=== PATIENT | female | born 1950 | race Caucasian/White ===

== ENCOUNTER → 2020-05-13 17:56 | Outpatient (CLI) | payer MEDICARE, OTHER, SELFPAY ==
--- NOTE | ~2020-05-13 | MM_ITS ---
EXAMINATION: MM screening [facility] BI w colleen HISTORY: Screening TECHNIQUE: Craniocaudal and mediolateral oblique 3-D tomosynthesis images were obtained and synthetic 2-D images were generated. CAD analysis was submitted and interpreted. COMPARISON: Comparison to multiple prior studies sequentially, with oldest reviewed study dated 10/26. BREAST PARENCHYMAL COMPOSITION: There are scattered areas of fibroglandular density. FINDINGS: Breast asymmetries are stable. There is no evidence of suspicious mass, calcification, or a rchitectural distortion to suggest malignancy in either breast. There has been no suspicious interval change. IMPRESSION: 1. No mammographic evidence of malignancy. 2. Recommend routine screening mammography in one year. BI-RADS Category 1: Negative Reviewed, dictated and finalized at location A.
== END ==
PROVIDERS: PCP Internal Medicine
DX: Z12.31 Encounter for screening mammogram for malignant neoplasm of breast (principal)
CPT/HCPCS: 77063; 77067

== ENCOUNTER 2020-06-12 06:49 | Outpatient (NON) | payer MEDICARE, OTHER, SELFPAY ==
[2020-06-13 01:02] LABS: SARS-CoV-2 RNA PCR Positive
== END 2020-06-12 06:50 ==
LOC: ANHCOVIDDT 06:49
PROVIDERS: PCP Internal Medicine; Visit Provider Physician Assistant
DX: U07.1 COVID-19 (principal)
CPT/HCPCS: 87635; C9803; U0003

== ENCOUNTER 2021-03-24 00:47 | Day surgery (SDC) | payer MEDICARE, OTHER, SELFPAY ==
[2021-03-15 14:48] VITALS: BMI 32.0
[2021-03-24] MEDS: LACTATED RINGERS 1,000 ML 150 ML IV CONT (07:07)
[2021-03-24 07:08] VITALS: BP 141/72; PULSE 95; RESP 18; TEMP 36.1; O2SAT 98; BMI 32.3
--- NOTE | 2021-03-24 07:13 | WPDANESEPPF ---
Anes - Initial Pre Proc Eval Procedure: Operation Date: 03/24/21 08:00 Proposed Procedures p Screening Colonoscopy - Huber Meier MD Date/Time: 03/24/21 07:13 Surgeon: Huber Meier MD Pre Op Diagnosis: neoplasm screening Patient Data Age: 71 Gender: F Height: 1.6 m Weight: 82.9 kg Last Vital Signs Temp 36.1 C L 03/24/21 07:08 Pulse 95 03/24/21 07:08 Resp 18 03/24/21 07:08 BP 141/72 H 03/24/21 07:08 Pulse Ox 98 03/24/21 07:08 Allergies Allergy/AdvReac Type Severity Reaction Status Date / Time lisinopril Allergy Mild Cough Verified 03/24/21 07:07 Home Medications Medication Instructions Recorded Confirmed Type aspirin 81 mg chewable tablet 81 mg PO DAILY 06/08/19 03/24/21 History calcium carbonate 500 mg calcium 500 mg PO DAILY 06/08/19 03/24/21 History (1,250 mg) tablet estradiol 0.5 mg tablet 0.25 mg PO DAILY 06/08/19 03/24/21 History magnesium 250 mg tablet 500 mg PO DAILY tablet 06/08/19 03/24/21 History esomeprazole magnesium 20 mg 20 mg PO DAILY 05/29/20 03/24/21 History capsule,delayed release nortriptyline 50 mg capsule 50 mg PO .hs #90 cap 02/26/21 03/24/21 Rx atorvastatin 20 mg tablet 20 mg PO DAILY #90 tablet 03/07/21 03/24/21 Rx olmesartan 20 mg tablet 20 mg PO DAILY #90 tablet 03/07/21 03/24/21 Rx cholecalciferol (vitamin D3) 125 mcg PO DAILY 03/15/21 03/24/21 History [Vitamin D3] diclofenac sodium 100 mg PO DAILY 03/15/21 03/24/21 History multivitamin with minerals 1 tablet PO DAILY 03/15/21 03/24/21 History [Hair,Skin and Nails] Patient hx anesthesia problems: none Family hx anesthesia problems: none PMFSH Family History Family History Father Family history of diabetes mellitus in first degree relative Mother Patient's mother is , Onset Age: 63 Social History Social History Smoking status: Never smoker Second hand tobacco smoke exposure: No Alcohol intake: never Alcohol use details: social Substance use: never Living arrangements: with family Spiritual care concerns: No Anes - Eval Final PreProcedure Day of Procedure 03/24/21 07:13 Patient weight: obese Heart: regular rate and rhythm Lungs: clear to auscultation Airway: Mallampati scale class II Neurological: alert and oriented Last oral intake: >/= 8 hours ASA classification: III Emergent: no Anesthetic plan: proceed Anesthesia type and monitoring: general GIVS and standard monitoring Informed Consent: The patient's anesthetic plan and its attendant risks and benefits were discussed with the patient/family/POA. Questions were solicited and answers provided to the satisfaction of the patient/family/POA.
--- NOTE | 2021-03-24 07:23 | WPDGICN ---
Assessment and Plan Assessment and plan (1) Encounter for screening colonoscopy: Code(s): Z12.11 - Encounter for screening for malignant neoplasm of colon Status: Acute Assessment and Plan: Patient presents for screening colonoscopy. her last exam was 10 years ago. GI Consult Note Consult date/time: 03/24/21 07:23 HPI: Rosa Olmstead is a 71 year old female Presents for screening colonoscopy. Patient reports that her current weight appetite bowel movements are normal. Patient denies abdominal pain. She has had no blood in his stools. Family history is noncontributory. Surveillance colonoscopy is suggested PMFSH Family History Family History Father Family history of diabetes mellitus in first degree relative Mother Patient's mother is , Onset Age: 63 Social History Social History Smoking status: Never smoker Second hand tobacco smoke exposure: No Alcohol intake: never Alcohol use details: social Substance use: never Living arrangements: with family Spiritual care concerns: No Meds Home Medications and Allergies Home Medications Medication Instructions Recorded Confirmed Type aspirin 81 mg chewable tablet 81 mg PO DAILY 06/08/19 03/24/21 History calcium carbonate 500 mg calcium 500 mg PO DAILY 06/08/19 03/24/21 History (1,250 mg) tablet estradiol 0.5 mg tablet 0.25 mg PO DAILY 06/08/19 03/24/21 History magnesium 250 mg tablet 500 mg PO DAILY tablet 06/08/19 03/24/21 History esomeprazole magnesium 20 mg 20 mg PO DAILY 05/29/20 03/24/21 History capsule,delayed release nortriptyline 50 mg capsule 50 mg PO .hs #90 cap 02/26/21 03/24/21 Rx atorvastatin 20 mg tablet 20 mg PO DAILY #90 tablet 03/07/21 03/24/21 Rx olmesartan 20 mg tablet 20 mg PO DAILY #90 tablet 03/07/21 03/24/21 Rx cholecalciferol (vitamin D3) 125 mcg PO DAILY 03/15/21 03/24/21 History [Vitamin D3] diclofenac sodium 100 mg PO DAILY 03/15/21 03/24/21 History multivitamin with minerals 1 tablet PO DAILY 03/15/21 03/24/21 History [Hair,Skin and Nails] Allergies Allergy/AdvReac Type Severity Reaction Status Date / Time lisinopril Allergy Mild Cough Verified 03/24/21 07:07 Vital Signs Vital Signs - 24 hr 03/24/21 07:08 Temperature 97 F L Pulse Rate 95 Respiratory Rate 18 Blood Pressure 141/72 H Pulse Oximetry 98 Exam Narrative: physical exam reveals patient to be alert. Vital signs are stable. HEENT exam is unremarkable. Patient is anicteric. Lungs are clear to auscultation and percussion. Heart is without murmur or extra sounds. Abdominal exam bowel sounds are present soft nontender with no hepatosplenomegaly. Digital external rectal exam is normal.
[2021-03-24 08:20] VITALS: BP 132/64; PULSE 81; RESP 18; O2SAT 100
[2021-03-24 08:30] VITALS: BP 136/83; PULSE 79; RESP 17; O2SAT 100
[2021-03-24 08:40] VITALS: BP 139/86; PULSE 76; RESP 18; O2SAT 100
== END 2021-03-24 08:52 | disposition home or self-care (01) ==
PROVIDERS: PCP Internal Medicine; Visit Provider Internal Medicine Gastroenterology
PROC: 0DJD8ZZ Inspection of Lower Intestinal Tract, Via Natural or Artificial Opening Endoscopic (ICD-10-PCS; CPT 45378; principal; 2021-03-24 08:00)
DX: Z12.11 Encounter for screening for malignant neoplasm of colon (principal); K64.8 Other hemorrhoids; Z79.82 Long term (current) use of aspirin; E66.9 Obesity, unspecified; Z68.32 Body mass index [BMI] 32.0-32.9, adult
CPT/HCPCS: G0121; J2704; J7120

== ENCOUNTER 2021-08-27 17:54 | Emergency (ER) | payer MEDICARE, SELFPAY ==
--- NOTE | 2021-08-27 19:11 | PC.NURSE ---
Pt to the intake desk and states she feels better and wants to leave. IV removed and pt walked out without difficulty
== END 2021-08-27 19:15 | disposition left against medical advice (07) ==
LOC: ANHED 19:14
PROVIDERS: PCP Internal Medicine
DX: Z53.21 Procedure and treatment not carried out due to patient leaving prior to being seen by health care provider (principal)
CPT/HCPCS: 99199

== ENCOUNTER 2021-09-16 07:29 | Outpatient (CLI) | payer MEDICARE, SELFPAY ==
--- NOTE | 2021-09-16 07:49 | ECHO_ITS ---
Patient Info Name: Rosa Olmstead Age: 71 years : 1950 Gender: Female Ht: 63 in Wt: 190 lbs BSA: 1.99 m2 HR: 82 bpm BP: 154 / 89 mmHg Heart Rhythm: Left Bundle Branch Block Technical Quality: Good Exam Date: 09/16/2021 8:01 AM Exam Location: [facility] Patient Status: Outpatient Admit Date: 09/16/2021 Staff Ordering Physician: Erickson Regalado PA-C Database Programmer Analyst: Aurea Warner RDCS Attending Provider: Erickson Regalado PA-C Referring Physician: Sabine BRADFORD; Exam Type: CA echo doppler color flow Study Info Indications R55 - Syncope and collapse Complete two-dimensional, color flow and Doppler transthoracic echocardiogram is performed. Summary 1. Complete two-dimensional, color flow and Doppler transthoracic echocardiogram is performed. 2. Left ventricular chamber dimension is normal. 3. Left ventricular systolic function is normal, estimated at 60-65%. 4. There is mildly increased left ventricular wall thickness. 5. Left ventricular septal wall motion is abnormal with septal motion related to bundle branch block. 6. The left ventricular diastolic function is grade I diastolic dysfunction. 7. E/e' 17 is elevated. 8. Global longitudinal strain is abnormal at -15.5%. 9. Left atrial chamber dimension is moderately enlarged. 10. 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 11. The mitral valve has mildly calcified leaflets. 12. There is mild to moderate mitral valve regurgitation. 13. There is trace tricuspid valve regurgitation. 14. No pulmonary hypertension, estimated pulmonary arterial systolic pressure is 37 mmHg. Left Ventricle E/e' 17 is elevated. Global longitudinal strain is abnormal at -15.5%. Left ventricular chamber dimension is normal. Left ventricular systolic function is normal, estimated at 60-65%. There is mildly increased left ventricular wall thickness. Left ventricular septal wall motion is abnormal with septal motion related to bundle branch block. The left ventricular diastolic function is grade I diastolic dysfunction. Right Ventricle Right ventricular systolic function is normal with normal TAPSE 2.6 cm. Right ventricular chamber dimension is normal. Left Atria Left atrial chamber dimension is moderately enlarged. Right Atria Right atrial chamber dimension is normal. 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 Aortic Valve The aortic valve is trileaflet. There is no aortic valve stenosis. There is no aortic valve regurgitation. Pulmonic Valve There is no pulmonic regurgitation. Mitral Valve The mitral valve has mildly calcified leaflets. There is no mitral valve stenosis. There is mild to moderate mitral valve regurgitation. Tricuspid Valve There is trace tricuspid valve regurgitation. No pulmonary hypertension, estimated pulmonary arterial systolic pressure is 37 mmHg. Pericardium/Pleural There is no pericardial effusion. Inferior Vena Cava Normal inferior vena cava with >50% collapse upon inspiration consistent with normal right atrial pressure, 5 mmHg. Aorta The aortic root size at the sinus of Valsalva is normal. Left Ventricular Outflow Tract Name Value Normal LVOT 2D
--- NOTE | 2021-09-16 07:50 | ECG_ITS ---
Measurements Intervals [place] Rate: 87 P: 62 IL: 169 QRS: -34 QRSD: 159 T: 65 QT: 428 QTc: 516 Interpretive Statements SINUS RHYTHM LEFT AXIS DEVIATION LEFT BUNDLE BRANCH BLOCK BASELINE ARTIFACT- I, II, III, AVR, AVL ABNORMAL ECG Electronically Signed On 09-16-2021 9:00:47 HANDBAG FINISHER by Junior Fletcher D.O.
== END 2021-09-16 07:30 | disposition home or self-care (01) ==
LOC: ANHCARD 07:30
PROVIDERS: PCP Internal Medicine; Visit Provider Physician Assistant
DX: R55 Syncope and collapse (principal); R94.31 Abnormal electrocardiogram [ECG] [EKG]; I08.1 Rheumatic disorders of both mitral and tricuspid valves; I25.3 Aneurysm of heart; I45.4 Nonspecific intraventricular block
CPT/HCPCS: 93005; 93306

== ENCOUNTER → 2022-03-03 13:27 | Outpatient (CLI) | payer MEDICARE, OTHER, SELFPAY ==
--- NOTE | ~2022-03-03 | MM_ITS ---
EXAMINATION: MM screening [facility] BI w colleen HISTORY: Screening TECHNIQUE: Craniocaudal and mediolateral oblique 3-D tomosynthesis images were obtained and synthetic 2-D images were generated. CAD analysis was submitted and interpreted. COMPARISON: Comparison to multiple prior studies sequentially, with oldest reviewed study dated 12/2012. BREAST PARENCHYMAL COMPOSITION: Breast composed of scattered areas of fibroglandular density FINDINGS: Stable benign-appearing low-density mass lower inner quadrant of the left breast. There is no evidence of suspicious mass, calcification, or architectural distortion to suggest malignancy in e ither breast. There has been no suspicious interval change. IMPRESSION: 1. No mammographic evidence of malignancy. 2. Recommend routine screening mammography in one year. BI-RADS Category 2: Benign finding(s). Reviewed, dictated and finalized at location A.
== END ==
PROVIDERS: PCP Internal Medicine; Visit Provider Internal Medicine
DX: Z12.31 Encounter for screening mammogram for malignant neoplasm of breast (principal)
CPT/HCPCS: 77063; 77067

== ENCOUNTER 2023-03-28 14:01 | Outpatient (CLI) | payer MEDICARE, SELFPAY ==
[2023-03-28 15:35] LABS: Influenza A QL RT-PCR Negative (Negative); Influenza B QL RT-PCR Negative (Negative); SARS-CoV-2 RNA PCR Negative (Negative)
== END 2023-03-28 14:02 | disposition home or self-care (01) ==
PROVIDERS: PCP Internal Medicine; Visit Provider Internal Medicine
DX: J06.9 Acute upper respiratory infection, unspecified (principal); R05.9 Cough, unspecified
CPT/HCPCS: 87636

== ENCOUNTER → 2023-03-28 14:27 | Outpatient (CLI) | payer MEDICARE, SELFPAY ==
--- NOTE | ~2023-03-28 | XR_ITS ---
XR chest 2V DATE: 03/28/2023 14:43 INDICATION: Cough TECHNIQUE: 2 views COMPARISON: 12/19/2018 PA and lateral chest FINDINGS: Postoperative change with cardiac valve replacement since 12/19/2018. Heart size is within n ormal range. No hilar or mediastinal enlargement. The lungs are moderately hyperinflated but clear of infiltrate or consolidation. No pleural effusion or pulmonary vascular congestion or pneumothorax is detected. IMPRESSION: Cardiac valve replacement since 12/19/2018 Bilateral hyperinflation; no active cardiopulmonary disease Reviewed, dictated and finalized at location L.
== END ==
PROVIDERS: PCP Internal Medicine; Visit Provider Internal Medicine
DX: R05.9 Cough, unspecified (principal); Z95.2 Presence of prosthetic heart valve; R91.8 Other nonspecific abnormal finding of lung field
CPT/HCPCS: 71046

== ENCOUNTER 2024-03-13 12:38 | Outpatient (CLI) | payer MEDICARE, SELFPAY ==
--- NOTE | ~2024-03-13 | MM_ITS ---
EXAMINATION: MM screening [facility] BI w colleen HISTORY: Screening TECHNIQUE: Craniocaudal and mediolateral oblique 3-D tomosynthesis images were obtained and synthetic 2-D images were generated. CAD analysis was submitted and interpreted. COMPARISON: Comparison to multiple prior studies sequentially, with oldest reviewed study dated 04/10. BREAST PARENCHYMAL COMPOSITION: Not dense: There are scattered areas of fibroglandular density. FINDINGS: There are developing asymmetries in the upper central aspect of the left breast. The right breast is stable without evidence for malignancy. IMPRESSION: 1. Developing left breast asymmetries. 2. Additional mammographic views and possible breast ultrasound are recommended. BI-RADS Category 0: Incomplete: Needs additional imaging evaluation. Reviewed, dictated and finalized at location B. IMPRESSION: 1. Developing left breast asymmetries. 2. Additional mammographic views and possible breast ultrasound are recommended . BI-RADS Category 0: Incomplete: Needs additional imaging evaluation.
== END 2024-03-13 12:39 ==
LOC: MICIMG 12:39
PROVIDERS: PCP Obstetrics & Gynecology; Visit Provider Obstetrics & Gynecology
DX: Z12.31 Encounter for screening mammogram for malignant neoplasm of breast (principal); R92.8 Other abnormal and inconclusive findings on diagnostic imaging of breast
CPT/HCPCS: 77063; 77067

== ENCOUNTER 2024-03-18 10:42 | Outpatient (CLI) | payer MEDICARE, SELFPAY ==
--- NOTE | ~2024-03-18 | DEXA_ITS ---
Bone Density Report Name: SHIREEN HARE Age: 74 Sex: Female Ethnicity: White Date of : 1950 Indication: postmenopausal; screening for osteoporosis; height loss; hysterectomy; Referring Provider: LE, DAVID Study: Bone densitometry was performed. Exam Date: March 18, 2024 Accession number: [id number] Bone Density: Region BMD T-score Z-score Classification AP Spine(L1-L4) 0.993 -0.5 1.9 Normal Femoral Neck (Left) 0.854 0.0 2.1 Normal Total Hip (Left) 0.953 0.1 1.8 Normal Femoral Neck (Right) 0.811 -0.3 1.7 Normal Total Hip (Right) 0.992 0.4 2.1 Normal Total Hip Mean 0.973 0.3 2.0 Normal World Health Organization criteria for BMD impression classify patients as: Normal (T-score at or above -1.0), Osteopenia (T-score between -1.0 and -2.5), or Osteoporosis (T-score at or below -2.5). 10-year Fracture Risk: FRAX not reported because: All T-scores for Spine Total, Hip Total, Femoral Neck at or above -1.0 Clinical Information Provided by Patient: Has used the following medications: Vitamin D, Calcium Has the following medical conditions: Hysterectomy Patient maximum height was 64.0 No regular weight bearing exercise Drinks caffeinated beverages Onset of menses at age 12 Number of children 1 Impression: The patient has normal bone mass. Discussion: BONE DENSITY IS ABOVE THE MINIMUM DESIRABLE LEVEL AT ALL SKELETAL SITES TESTED. This patient?s bone mineral density is above the minimum desirable level (T-score -1.0 or better) at all sites measured. The patient should follow a healthful lifestyle (good nutrition with adequate calcium and vitamin D, and appropriate weight-bearing exercise). Follow-Up: Consider repeating this study in 5 years or sooner if there is some new clinical indication. Reported by: SAYRA on 03/18/2024 11:10:00 AM. Reviewed, dictated and finalized at location AJohn HAIR
== END 2024-03-18 10:43 | disposition home or self-care (01) ==
LOC: ANHIMG 10:43
PROVIDERS: PCP Internal Medicine; Visit Provider Obstetrics & Gynecology
DX: Z78.0 Asymptomatic menopausal state (principal)
CPT/HCPCS: 77080

== ENCOUNTER 2024-04-18 08:46 | Outpatient (CLI) | payer MEDICARE, OTHER, SELFPAY ==
--- NOTE | ~2024-04-18 | MM_ITS ---
EXAMINATION: MM diagnostic brian LT w colleen HISTORY: Left breast asymmetry TECHNIQUE: Additional 3-D tomosynthesis images of left breast were performed and synthetic 2-D images were generated. CAD analysis was submitted and interpreted. COMPARISON: 03/13/2024, 03/03/2022, 05/13/2020 BREAST PARENCHYMAL COMPOSITION:Not Dense. There are scattered areas of fibroglandular density. FINDINGS: The areas of asymmetry demonstrate relative effacement with spot compression. No persistent mass lesion or distortion are identified. No suspicious microcalcification. IMPRESSION: No mammographic evidence for malignancy. BI-RADS Category 1: Negative Reviewed, dictated and finalized at location .
== END 2024-04-18 08:47 | disposition home or self-care (01) ==
PROVIDERS: PCP Internal Medicine; Visit Provider Obstetrics & Gynecology
DX: R92.8 Other abnormal and inconclusive findings on diagnostic imaging of breast (principal)
CPT/HCPCS: 77061; 77065; G0279

== ENCOUNTER 2025-04-21 10:56 | Outpatient (CLI) | payer MEDICARE, OTHER, SELFPAY ==
--- NOTE | ~2025-04-21 | MM_ITS ---
EXAMINATION: MM screening [facility] BI w colleen HISTORY: Screening TECHNIQUE: Craniocaudal and mediolateral oblique 3-D tomosynthesis images were obtained and synthetic 2-D images were generated. CAD analysis was submitted and interpreted. COMPARISON: Comparison to multiple prior studies sequentially, with oldest reviewed study dated 11/01/2017. BREAST PARENCHYMAL COMPOSITION: There are scattered areas of fibroglandular density. FINDINGS: There is no evidence of suspicious mass, calcification, or architectural distortion to suggest malignancy in either breast. Scattered benign-appearing calcifications are present. IMPRESSION: 1. No mammographic evidence of malignancy. 2. Recommend routine screening mammography in one year. BI-RADS Category 2: Benign finding(s). Reviewed, dictated and finalized at location B.
== END 2025-04-21 10:57 | disposition home or self-care (01) ==
LOC: MICIMG 10:57
PROVIDERS: PCP Obstetrics & Gynecology; Visit Provider Internal Medicine
DX: Z12.31 Encounter for screening mammogram for malignant neoplasm of breast (principal)
CPT/HCPCS: 77063; 77067